=== PATIENT | female | born 1970 | race Caucasian/White ===

== ENCOUNTER 2025-05-16 19:29 | Emergency (ER) | payer BC ==
[2025-05-16] MEDS ORDERED: Boostrix 0.5 ML (Tdap) VIAL (>/=7 yrs of age) ONE (19:49)
== END 2025-05-16 20:21 | disposition home or self-care (01) ==
LOC: MADERS 19:29
DX: S61.210A Laceration without foreign body of right index finger without damage to nail, initial encounter (principal); Z23 Encounter for immunization; W26.8XXA Contact with other sharp object(s), not elsewhere classified, initial encounter; Y93.89 Activity, other specified
CPT/HCPCS: 12001; 90471; 90715